=== PATIENT | male | born 1985 | race African-American/Black ===

== ENCOUNTER 2017-10-25 01:00 | Emergency (ER) | payer OTHER ==
[~2017-10-25] VITALS: Ht 177.8 cm; Wt 77.1 kg
[2017-10-25 01:10] VITALS: BP 125/62
[2017-10-25 01:54] LABS: ABSOLUTE RETIC COUNT 0.2093 10^6/uL; OBSERVED RETIC COUNT 5.82 % (0.6-2.6)
[2017-10-25 01:55] LABS: HEMOGLOBIN 8.2 gm/dL (14.0-18.0); RBC 3.59 mil/uL (4.50-6.00); WBC 9.8 thou/uL (4.0-11.0)
[2017-10-25 01:56] LABS: HEMATOCRIT 23.9 % (42.0-52.0); MCH 22.7 pg (26.0-34.0); MCHC 34.2 % (28.0-37.0); MCV 66.4 fL (80.0-100.0); PLATELET COUNT 401 thou/uL (150-400); RDW 24.6 % (10.5-14.5)
[2017-10-25 02:06] LABS: CALCIUM 8.9 mg/dL (8.5-10.1); POTASSIUM 3.7 mmol/L (3.5-5.1)
[2017-10-25 02:12] LABS: ALBUMIN 4.1 g/dL (3.4-5.0); TOTAL BILIRUBIN 2.9 mg/dL (<0.1-1.0); TOTAL PROTEIN 8.4 g/dL (6.4-8.2)
[2017-10-25 02:37] LABS: NUCLEATED RBCS 1 /100WBC; POLYCHROMASIA OCCASIONAL; TARGET CELLS 3+
[2017-10-25 02:38] LABS: ANISOCYTOSIS 3+; LARGE PLATELETS OCCASIONAL; MACROCYTES 1+
== END 2017-10-25 02:48 | disposition home or self-care (01) ==
LOC: ER 01:00
PROVIDERS: Emergency Medicine
DX: D57.00 Hb-SS disease with crisis, unspecified (principal); M54.5 Low back pain; F17.210 Nicotine dependence, cigarettes, uncomplicated